=== PATIENT | female | born 1930 | race American Indian/Alaskan Native ===

== ENCOUNTER 2016-07-28 08:33 | Outpatient (CLI) | payer MEDICARE ==
--- NOTE | 2016-07-29 11:51 | Vascular Lab Report ---
ABDOMINAL AORTA DUPLEX EXAM: REASON FOR EXAM: Abdominal aortic aneurysm. COMMENTS ON THE ABDOMINAL AORTA: The abdominal aorta is patent. No aneurysmal dilatation is noted. Mild atherosclerotic change is identified. The abdominal aorta measures up to 1.5 x 1.4 cm. The distal abdominal aorta measures up to 1.1 x 1 cm. COMMENTS ON THE SMA AND CELIAC ARTERIES: The superior mesenteric artery has borderline elevated systolic velocities. The proximal superior mesenteric artery velocity is 279 cm/s systolic and 35 cm/s diastolic The mid superior mesenteric artery velocity is 273 cm/s systolic and 40 cm/s diastolic The distal superior mesenteric artery velocity is 251 cm/s systolic and 25 cm/s diastolic The celiac artery has velocities within normal limits. The celiac artery velocity is 157 cm/s systolic and 29 cm/s diastolic IMPRESSION: No evidence of abdominal aortic aneurysm. Interrogation of the celiac artery and SMA revealed borderline elevated systolic velocities in the superior mesenteric artery. The celiac artery velocities are normal. Recommend correlation with patient's signs and symptoms.
== END 2016-07-28 08:34 | disposition home or self-care (01) ==
LOC: VAS 08:33
PROVIDERS: ATTEND Surgery Vascular Surgery
DX: I72.8 Aneurysm of other specified arteries (principal)
CPT/HCPCS: 93979